=== PATIENT | male | born 1975 | race Caucasian/White ===

== ENCOUNTER 2019-10-30 20:04 | Emergency (ER) | payer OTHER ==
[~2019-10-30] VITALS: Ht 182.9 cm; Wt 108.7 kg
[2019-10-30 20:15] VITALS: BP 124/81
--- NOTE | 2019-10-30 20:27 | NUR ---
USING OWN CRUTCHES
--- NOTE | 2019-10-30 20:49 | NUR ---
PT CAME IN CO OF RIGHT ACHILLES PAIN. SAYS HE JUMPED BACK WHEN HE SAW A SNAKE AND IT HELT LIKE SOMEONE HIT HIM IN THE BACK OF THE LEG. HE RIGHT ACHILLES TENDON FEELS SOFT COMPARED TO THE LEFT ONE THAT FEELS STRONG AND TAUGHT. PT IS ACCOMPANIED BY FRIEND. DENIES PAIN WHEN RESTING SAYS IT HURTS TO MOVE IT.
== END 2019-10-30 21:30 | disposition home or self-care (01) ==
LOC: ED 21:20
DX: S86.011A Strain of right Achilles tendon, initial encounter (principal); M25.571 Pain in right ankle and joints of right foot; X58.XXXA Exposure to other specified factors, initial encounter; Y93.39 Activity, other involving climbing, rappelling and jumping off; Y92.328 Other athletic field as the place of occurrence of the external cause; Y99.8 Other external cause status
CPT/HCPCS: 29515; 99284